=== PATIENT | female | born 1940 | race Caucasian/White ===

== ENCOUNTER → 2017-11-07 | Outpatient (CLI) | payer BC, MEDICARE ==
[~2017-11-07] VITALS: Ht 160 cm; Wt 55.8 kg
[~2017-11-07] MED LIST: AMLO10 PO; BENA20TA PO; CHLORHEXIDINE GLUCONATE 2 % 1 PACK (2 CLOTHS) TOPICAL PRN; LACTATED RINGER'S 1000 ML IV PRN; LIDOCAINE HCL 1% PF 5 ML SYRINGE OTHER ONE; LORA-392 PO; METOPROLOL TARTRATE 25 MG TAB PO PRN; PAXI30TA7 PO; POVIDONE IODINE 5% (ANTISEPSIS KIT) 4 APPLICATIONS EACH NARE PRN; PROPOFOL 200 MG/20 ML AMP IV ONE; SODIUM CHLORID 0.9% 500 ML IV PRN; VALS1TAB70 PO
--- NOTE | 2017-11-07 09:49 | GIPROC ---
[facility] [address] [facility]. [facility], [id number] EGD PROCEDURE REPORT EXAM DATE: 11/07/2017 PATIENT NAME: Aziza Alejandra MR #: [id number] BIRTHDATE: 1940 ATTENDING: Carl Benz MD ORDER #: [id number] [employer] WORKER: Eduard Mka and Nicky Grant STATUS: outpatient INDICATIONS: The patient is a 76 yr old female here for an EGD due to dyspepsia and dysphagia PROCEDURE PERFORMED: EGD w/ biopsy EGD w/ dilation of esophagus via guidewire MEDICATIONS: Per Anesthesia and None. TOPICAL ANESTHETIC: CONSENT: The patient understands the risks and benefits of the procedure and understands that these risks include, but are not limited to: sedation, allergic reaction, infection, perforation and/or bleeding. Alternative means of evaluation and treatment include, among others: physical exam, x-rays, and/or surgical intervention. The patient elects to proceed with this endoscopic procedure. medical equipment was checked for proper function. Hand hygiene and appropriate measures for infection prevention was taken. After the risks, benefits and alternatives of the procedure were thoroughly explained, Informed consent was verified, confirmed and timeout was successfully executed by the treatment team. The patient was anesthetized with topical anesthesia and the Pentax EG-[id number] endoscope was introduced through the mouth and advanced to the third portion of the duodenum. Retroflexed views revealed a hiatal hernia The gastroscope was then slowly withdrawn and removed. 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 The stricture was traversable with resistance. The stricture was dilated using a 10mm (30Fr) savary dilator over guidewire. Dilation was performed under fluoroscopy. The stricture was dilated using a 12mm (36Fr) savary dilator over guidewire. Dilation was performed under fluoroscopy. STOMACH: There was erythematous moderate gastritis in the gastric antrum. A biopsy was performed using cold forceps. Sample sent for histology. DUODENUM: The duodenal mucosa appeared normal in the bulb and second portion of the duodenum. ADVERSE EVENTS: There were no complications. IMPRESSIONS: 1. There was a short stricture in the proximal esophagus; The stricture was dilated using a 10mm (30Fr) savary dilator over guidewire.; The stricture was dilated using a 12mm (36Fr) savary dilator over guidewire 2. There was erythematous gastritis in the gastric antrum; biopsy was performed 3. Normal duodenal mucosa in the bulb and second portion of the duodenum 4. Retroflexed views revealed a hiatal hernia RECOMMENDATIONS: 1. Await biopsy results. Biopsy results will not be ready for 7-10 days. If you don't hear from us in two weeks, call our office for biopsy results. 2. Anti-reflux regimen 3. Continue PPI 4. Avoid NSAIDS PATIENT CONDITION: stable DISPOSITION: Home REPEAT EXAM: Return 1 year EGD with dilatation Carl Benz MD eSigned: Carl Benz MD 11/07/2017 9:48 AM cc: Regulo rios M.D. PATIENT NAME: Aziza Alejandra MR#: [id number]
[2017-11-07 10:37] VITALS: BP 127/54; PULSE 68; RESP 18; TEMP 98; O2SAT 100
--- NOTE | 2017-11-07 13:40 | EKG ---
Date Performed: 11/07/2017 Time Performed: 08:03:47 PTAGE: 76 years EKG: Sinus rhythm MARKED LEFT AXIS DEVIATION PATTERN CONSISTENT WITH PULMONARY DISEASE ABNORMAL ECG NO PREVIOUS TRACING DOCTOR: Misty Odell Interpretating Date/Time 11/07/2017 13:39:13
== END ==
LOC: HEND 07:39
PROVIDERS: ATTEND Internal Medicine Gastroenterology
DX: R10.13 Epigastric pain (principal); R13.10 Dysphagia, unspecified; K44.9 Diaphragmatic hernia without obstruction or gangrene; K22.2 Esophageal obstruction; K29.70 Gastritis, unspecified, without bleeding
CPT/HCPCS: 00731; 43239; 43248; 76000; 88305; 88312; 93005; C1769; J7120